=== PATIENT | female | born 1985 | race Caucasian/White ===

== ENCOUNTER 2017-03-17 09:54 | Inpatient (IN) | payer OTHER ==
[~2017-03-17] VITALS: Ht 154.9 cm; Wt 81.6 kg
[2017-03-17 10:04] VITALS: BP 161/118
--- NOTE | 2017-03-17 10:34 | NUR ---
Patient being evaluated by Dr. Blankenship at bedside.
[2017-03-17] MEDS ORDERED: NACL 0.9% 1,000 ML IV SCH (10:35)
[2017-03-17] MEDS ORDERED: ONDANSETRON 4 MG/2 ML VIAL IVP ONE (10:35)
[2017-03-17] MEDS ORDERED: MORPHINE SULFATE 4 MG/ML SYR IVP ONE ×2 (10:35→11:35)
--- NOTE | 2017-03-17 10:40 | NUR ---
31/F c/o RUQ abdominal pain x3 days. Pt states she has hx of gallstones for the past few years but has been unable to have surgery d/t being the last few years. AOX4, ambulates with steady gait. VSS. Pt also c/o N/V, denies diarrhea. Afebrile. Pt crying and appears restless d/t pain. Placed in a position of comfort, placed on corset maker, pulse oximetry and blood pressure monitoring. VSS. All needs addressed at this time. Warm blanket provided.
--- NOTE | 2017-03-17 10:44 | NUR ---
Ultrasound at bedside.
[2017-03-17 10:59] LABS: BASOPHILS # (AUTO) 0.2 K/uL (0.00-0.22); BASOPHILS % (AUTO) 1.3 % (0.0-2.0); EOSINOPHILS # (AUTO) 0.1 K/uL (0-0.4); EOSINOPHILS % (AUTO) 1.1 % (0.0-4.0); HEMOGLOBIN 12.3 g/dL (12.0-16.0); LYMPHOCYTES # (AUTO) 1.4 K/uL (2.5-16.5); LYMPHOCYTES % (AUTO) 11.3 % (20.5-51.1); MEAN CORPUSCULAR HEMOGLOBIN 27 pg (27-31); MEAN CORPUSCULAR HGB CONC 33 g/dL (33-37); MEAN CORPUSCULAR VOLUME 82 fL (80-94); MONOCYTES # (AUTO) 0.7 K/uL (0.8-1.0); MONOCYTES % (AUTO) 6.1 % (1.7-9.3); NEUTROPHILS # (AUTO) 9.8 K/uL (1.8-7.7); NEUTROPHILS % (AUTO) 80.2 % (42.2-75.2); PLATELET COUNT (AUTO) 270 K/uL (140-450); RED BLOOD CELL COUNT(AUTO) 4.54 MIL/uL (4.20-5.40); RED CELL DISTRIBUTION WIDTH 15.2 % (11.6-13.7); WHITE BLOOD COUNT (AUTO) 12.2 K/uL (4.8-10.8)
--- NOTE | 2017-03-17 11:05 | NUR ---
Pt appears to be resting comfortably at this time. 04/10 at this time but states "I'm feeling a little better." Pt does not appears restless or guarding. Pt lying left side lying.
[2017-03-17 11:09] LABS: ANION GAP 10.7 (8-16); CALCIUM 8.4 mg/dL (8.5-10.1); CARBON DIOXIDE 27.9 mmol/L (21-32); CREATININE 0.6 mg/dL (0.6-1.3); POTASSIUM 3.6 mmol/L (3.5-5.1)
[2017-03-17 11:16] LABS: ALBUMIN 3.8 g/dL (3.4-5.0); TOTAL BILIRUBIN 0.5 mg/dL (0.0-1.0); TOTAL PROTEIN, SERUM 8.3 g/dL (6.4-8.2)
--- NOTE | 2017-03-17 11:25 | NUR ---
Patient appears to be resting comfortably in bed. No distress noted. VSS.
--- NOTE | 2017-03-17 11:34 | NUR ---
Patient ambulated to restroom with steady gait. Upon returning to room patient states "I don't feel good. I feel the same as I did when I came in." Dr. Blankenship made aware of patient c/o pain and nausea.
[2017-03-17] MEDS ORDERED: PIPERACILLIN/TAZOBACTAM 3.375 GM in DEXTROSE 5% 50 ML IV ONE (11:45)
[2017-03-17] MEDS ORDERED: PIPERACILLIN/TAZOBACTAM 3.375 GM VIAL IV ONE (12:06)
[2017-03-17 12:10] LABS: LACTIC ACID 1.1 mmol/L (0.4-2.0)
[2017-03-17] MEDS: NACL 0.9% 1,000 ML IV SCH ×2 (12:44→22:54)
[2017-03-17] MEDS ORDERED: MORPHINE SULFATE 2 MG/ML SYR IVP PRN (12:45)
[2017-03-17] MEDS ORDERED: MORPHINE SULFATE 4 MG/ML SYR IVP PRN ×2 (12:45→15:25)
[2017-03-17] MEDS ORDERED: ACETAMINOPHEN 325 MG TAB PO PRN (12:45)
[2017-03-17] MEDS ORDERED: ONDANSETRON 4 MG/2 ML VIAL IVP PRN (12:45)
[2017-03-17 13:00] LABS: INR 1.1 (0.8-1.2); PROTHROMBIN TIME 10.8 secs (10.8-13.4)
--- NOTE | 2017-03-17 13:11 | NUR ---
Patient will be admitted to care of Dr. Nino. Admited to Med/Surg. Will go to room 120-B. Belongings list completed. Report to Geoffrey HERNANDEZ.
[2017-03-17 13:25] VITALS: BP 153/92
--- NOTE | 2017-03-17 13:25 | NUR ---
Admitted from ER , with chief complaint of ABDOMINAL PAIN , 31 y/o ,Female, Cooperative, AAOX4, PT STATES PAIN OF 10/10. PT JUST MEDICATED WITH 4MG OF MORPHINE. WILL REEVALUATE. IV SITE PATENT AND INTACT. PT oriented to call light, bed, phone,television, bathroom, smoking policy, visiting hours, procedures, ID bracelet on. Belongings list checked. WILL CONTINUE TO MONITOR.
--- NOTE | 2017-03-17 15:06 | NUR ---
PATIENT IS ANXIOUS AND AGITATED STATING PAIN IS STILL 10/10. EXPLAINED THAT I WAS WAITING FOR DR. BRENNER TO CALL BACK. TRIED REPOSITIONING AND DISTRACTION. DR. BRENNER PAGED AGAIN. AWAITING CALL BACK.
--- NOTE | 2017-03-17 15:23 | NUR ---
PT STILL C/O ABDOMINAL PAIN 06/10. AGITATED AND RESTLESS. DR. BRENNER MADE AWARE. RECEIVED NEW ORDER TO INCREASE MORPHINE DOSE TO 6MG IV Q4H PRN FOR SEVERE PAIN. NOTED AND CARRIED OUT.
[2017-03-17] MEDS ORDERED: MORPHINE SULFATE 10 MG/ML SYR IVP PRN (15:29)
--- NOTE | 2017-03-17 15:32 | NUR ---
PT STATES PAIN IS STILL 10/10. MEDICATED ORDERED BY DR. BRENNER. NO S/S OF ACUTE DISTRESS. WILL CONTINUE TO MONITOR.
[2017-03-17 16:00] VITALS: BP 155/107
--- NOTE | 2017-03-17 17:30 | NUR ---
DR. COHEN IN TO SEE PATIENT.
--- NOTE | 2017-03-17 18:10 | NUR ---
SPOKE WITH DR. LEE. STATES HE IS UNABLE TO TAKE CONSULT AT THIS TIME DUE TO BEING OUT OF TOWN. WILL FOLLOW UP WITH DR. GAINES.
[2017-03-17] MEDS: HYDROmorphone PFS 2 MG/ML SYR IVP PRN ×2 (18:42→22:45)
--- NOTE | 2017-03-17 18:44 | NUR ---
DR. LAYTON NOTIFIED OF CONSULT.
--- NOTE | 2017-03-17 19:06 | NUR ---
ENDORSED PLAN OF CARE TO NIGHT RN. PT REMAINS STABLE.
--- NOTE | 2017-03-17 19:07 | NUR ---
RECD. RESTING IN BED, AWAKE, A/OX4. RESPIRATION EVEN AND UNLABORED. IV OF NS AT 100 ML/HR INFUSING, LEFT AC G20. CONVERSING WITH AND DAD AT THE BEDSIDE. PLAN OF CARE FOR THE SHIFT DISCUSSED. VERBALIZED UNDERSTANDING. PAIN IN THE ABDOMEN 09/10, CLAIMED TOLERABLE. WILL MEDICATE ORDERED. Addendum: 03/17/17 at 2233 by Ye Manning LVN THIS CHARTING MADE BY YE MANNING LVN NOT BY MARY VELIZ
--- NOTE | 2017-03-17 20:00 | NUR ---
Patient's Plan of Care was discussed and reviewed with CASTING REPAIRER: YE MANNING
--- NOTE | 2017-03-17 22:00 | NUR ---
COMPLAINT OF SHORTNESS OF BREATH. PUT ON 02 AT 2 LITERS VIA N/C. GETS NAUSEATED, VOMITED SMALL AMOUNT OF YELLOWISH FLUID. SITS ON THE BED, O2 SAT - 100%. Addendum: 03/17/17 at 2233 by Ye Manning LVN CORRECTION: THIS NOTES ENTERED BY YE MANNING LVN NOT BY MARY VELIZ
--- NOTE | 2017-03-17 22:17 | NUR ---
MEDICATED WITH ZOFRAN 4 MG. IVP BY MARY VELIZ. Addendum: 03/17/17 at 2234 by Ye Manning LVN CORRECTION: THIS NOTES MADE BY YE MANNING LVN NO MARY VELIZ.
[2017-03-17 22:45] VITALS: BP 155/80
--- NOTE | 2017-03-17 22:47 | NUR ---
SITTING IN BED, NO N/V NOTED.
--- NOTE | 2017-03-17 23:30 | NUR ---
AWARE OF NPO PAST MIDNIGHT.
[2017-03-18 00:30] VITALS: BP 111/73
--- NOTE | 2017-03-18 00:30 | NUR ---
ACCIDENTALLY WET THE BED, BEDDINGS CHANGED. AMBULATED TO BR TO VOID, GAIT STEADY. MADE COMFORTABLE IN BED WITH PILLOWS.
[2017-03-18] MEDS: DEXT 5% / NACL 0.45% 1,000 ML IV SCH ×2 (02:20→14:30)
--- NOTE | 2017-03-18 04:00 | NUR ---
SLEEPING COMFORTABLY IN BED.
[2017-03-18 05:16] VITALS: BP 124/74
[2017-03-18] MEDS: HYDROmorphone PFS 2 MG/ML SYR IVP PRN ×5 (05:16→21:54)
[2017-03-18 05:52] LABS: BASOPHILS # (AUTO) 0.1 K/uL (0.00-0.22); BASOPHILS % (AUTO) 1.3 % (0.0-2.0); EOSINOPHILS # (AUTO) 0.1 K/uL (0-0.4); EOSINOPHILS % (AUTO) 0.8 % (0.0-4.0); HEMATOCRIT 33.9 % (36-48); HEMOGLOBIN 11.3 g/dL (12.0-16.0); LYMPHOCYTES # (AUTO) 1.3 K/uL (2.5-16.5); LYMPHOCYTES % (AUTO) 11.8 % (20.5-51.1); MEAN CORPUSCULAR HEMOGLOBIN 27 pg (27-31); MEAN CORPUSCULAR HGB CONC 33 g/dL (33-37); MEAN CORPUSCULAR VOLUME 81 fL (80-94); MONOCYTES # (AUTO) 0.8 K/uL (0.8-1.0); MONOCYTES % (AUTO) 7.1 % (1.7-9.3); NEUTROPHILS # (AUTO) 8.9 K/uL (1.8-7.7); PLATELET COUNT (AUTO) 209 K/uL (140-450); RED CELL DISTRIBUTION WIDTH 14.9 % (11.6-13.7); WHITE BLOOD COUNT (AUTO) 11.2 K/uL (4.8-10.8)
[2017-03-18 06:12] LABS: ANION GAP 10.4 (8-16); CALCIUM 7.7 mg/dL (8.5-10.1); CARBON DIOXIDE 25.2 mmol/L (21-32); CREATININE 0.6 mg/dL (0.6-1.3); POTASSIUM 3.6 mmol/L (3.5-5.1); TOTAL BILIRUBIN 0.9 mg/dL (0.0-1.0); TOTAL PROTEIN, SERUM 6.9 g/dL (6.4-8.2)
--- NOTE | 2017-03-18 06:25 | NUR ---
COMPLAINT OF PAIN ATTENDED PROMPTLY, MEDICATED ORDERED. ALL NEEDS ATTENDED. CONDITION REMAIN STABLE. WILL ENDORSE TO AM NURSE FOR CONTINUITY OF CARE.
--- NOTE | 2017-03-18 07:25 | NUR ---
RECEIVED PATIENT REPORT AT BEDSIDE FROM NIGHT NURSE. PT IS AAOX4 AND SHOWS NO S/S OF DISTRESS ON ROOM AIR. PATIENT HAS A NOTED IV ON THE L AC WITH IVF'S INFUSING WELL. PATIENT SKIN IS INTACT. THE BED IS LOWERED WITH CALL LIGHT WITHIN REACH. PATIENT STATES PAIN ON THE RUQ HOWEVER REFUSES MORPHINE. PATIENT AWARE PRN PAIN MEDICATION DILAUDID 2 MG IV NOT DUE UNTIL 0916. PATIENT VERBALIZES UNDERSTANDING OF POC. WILL CONTINUE TO MONITOR.
--- NOTE | 2017-03-18 09:10 | NUR ---
ADMINISTERED PRN PAIN MEDICATION DILAUDID 2 MG IVP. PT TOLERATED ACTIVITY WELL. WILL CONTINUE TO MONITOR.
--- NOTE | 2017-03-18 09:12 | NUR ---
PATIENT HAS BEEN SCREENED AND CATEGORIZED MODERATE NUTRITION RISK. PATIENT WILL BE SEEN WITHIN 3-5 DAYS OF ADMISSION. 03/20/17-03/22/[address]
[2017-03-18] MEDS: NACL 0.9% 1,000 ML IV SCH (09:13)
--- NOTE | 2017-03-18 10:30 | NUR ---
PATIENT HAS FAMILY AT BEDSIDE AND SHOWS NO S/S OF DISTRESS ON ROOM AIR. PT AWARE OF PROCEDURE AT 1145 WILL CONTINUE TO MONITOR.
--- NOTE | 2017-03-18 10:32 | NUR ---
FAXED INITIAL REVIEW TO [facility] [phone] PHONE ONE[facility] [phone] FAXED INITIAL REVIEW TO ALLIED PHYSICIAN [phone] PHONE DESIRE [phone]
--- NOTE | 2017-03-18 11:30 | NUR ---
PT LEFT UNIT IN STABLE CONDITION TO PROCEDURE.
[2017-03-18] MEDS ORDERED: PROPOFOL 200 MG/20 ML VIAL IV ONE (11:40)
[2017-03-18] MEDS ORDERED: GLYCOPYRROLATE 0.2 MG/ML VIAL IV ONE (11:40)
[2017-03-18] MEDS ORDERED: SUCCINYLCHOLINE CHLORIDE 200 MG/10 ML VIAL IV ONE (11:40)
[2017-03-18] MEDS ORDERED: DEXAMETHASONE 4 MG/ML VIAL IVP ONE (11:40)
[2017-03-18] MEDS ORDERED: ROCURONIUM 50 MG/5 ML VIAL IV ONE (11:40)
[2017-03-18] MEDS ORDERED: SEVOFLURANE 250 ML BTL INH ONE (11:40)
[2017-03-18] MEDS ORDERED: ONDANSETRON 4 MG/2 ML VIAL IVP ONE (11:40)
[2017-03-18] MEDS ORDERED: NEOSTIGMINE 1:1000 10 MG/10 ML VIAL IM ONE (11:40)
[2017-03-18] MEDS ORDERED: fentaNYL 0.05 MG/ML VIAL ONE (11:48)
[2017-03-18] MEDS ORDERED: MIDAZOLAM 2 MG/2 ML VIAL ONE ×2 (11:48→13:53)
[2017-03-18] MEDS ORDERED: MEPERIDINE 50 MG/ML SYR ONE (11:49)
[2017-03-18] MEDS ORDERED: BUPIVACAINE-MPF/EPI 0.25% 30 ML VIAL INJ ONE (12:12)
[2017-03-18] MEDS ORDERED: LACTATED RINGERS 1,000 ML IV SCH (12:13)
[2017-03-18] MEDS ORDERED: ONDANSETRON 4 MG/2 ML VIAL IVP PRN (12:15)
[2017-03-18] MEDS ORDERED: MEPERIDINE 25 MG/ML SYR IVP PRN (12:15)
[2017-03-18] MEDS ORDERED: THROMBIN KIT 20 MU VIAL TP ONE (12:48)
[2017-03-18] MEDS: HYDROmorphone 1 MG/ML AMP IVP PRN ×4 (13:35→14:05)
[2017-03-18] MEDS ORDERED: HYDROmorphone PFS 2 MG/ML SYR ONE (13:47)
[2017-03-18] MEDS ORDERED: MIDAZOLAM 2 MG/2 ML VIAL IVP ONE (13:50)
--- NOTE | 2017-03-18 14:22 | NUR ---
PATIENT CAME TO UNIT LETHARGIC. PATIENT IS AROUSABLE AND AWAKE NOW AND STATES SHE IS IN PAIN 10/10 IN THE SURGERY SITE. PT HAS 4 NOTED DRESSINGS THAT ARE CLEAN DRY AND INTACT. PT BP IS 131/79, HR 80, O2 SAT 100%, 98.3 F TEMP, RESPIRATIONS 16, PAIN 10/10. WILL ADMINISTER PRN PAIN MEDICATION.
--- NOTE | 2017-03-18 14:30 | NUR ---
ADMINISTERED PRN PAIN MEDICATION. PT BED IS LOWERED WITH CALL LIGHT WITHIN REACH. ALL NEEDS MET. FAMILY AT BEDSIDE. WILL CONTINUE TO MONITOR.
[2017-03-18 16:00] VITALS: BP 117/62
--- NOTE | 2017-03-18 16:21 | NUR ---
PT UNABLE TO PREFORM IS DUE TO USING REST ROOM. RN AT BEDSIDE. WILL FOLLOW.
--- NOTE | 2017-03-18 16:30 | NUR ---
PATIENT IS C/O SEVERE PAIN. PATIENT IS AWARE DILAUDID MEDICATIONS IS NOT AVAILABLE. PT REFUSES TO RECEIVE MORPHINE OR OTHER FORMS OF PAIN MEDICATIONS. ENCOURAGED PATIENT TO GET NORCO 5/325MG PO FOR COVERAGE OF PAIN UNTIL DILAUDID 2 MG IV IS AVAILABLE.
[2017-03-18] MEDS: HYDROcodone/APAP 5/325 MG 1 TAB TAB PO PRN (17:18)
--- NOTE | 2017-03-18 18:29 | NUR ---
PATIENT C/O PAIN 06/10. PATIENT STATED NORCO DID NOT HELP. ADMINISTERED DILAUDID 2 MG IVP. PT SHOWS NO S/S OF DISTRESS ON ROOM AIR. WILL CONTINUE TO MONITOR.
--- NOTE | 2017-03-18 19:15 | NUR ---
PATIENT IS IN BED SLEEPING WITH FAMILY AT BEDSIDE. PATIENT IS EASILY AROUSABLE AND AAOX4. PATIENT REPORT GIVEN AT BEDSIDE TO NIGHT NURSE. PATIENT ENDORSED IN STABLE CONDITION.
--- NOTE | 2017-03-18 19:20 | NUR ---
RECEIVED PT FROM PORTER HERNANDEZ PT IS AAOX4 AMBULATORY IV ON LEFT ARM INFUSING WELL , ABD 3 BAND AIDS AND A SMALL DRESSING ON UMBILICAL AREA, RELATIVE AT BED SIDE INITIAL ASSESSMENT DONE
[2017-03-18 20:00] VITALS: BP 108/55
--- NOTE | 2017-03-18 22:30 | NUR ---
AFTER PAIN MEDIC GIVEN PT SLEEP QUIET NOT DISTRESS NOTED
[2017-03-19] VITALS: BP 115/80
[2017-03-19] MEDS: diphenhydrAMINE 50 MG/ML VIAL IVP PRN ×2 (00:30→04:06)
--- NOTE | 2017-03-19 01:38 | NUR ---
PT IS ASSISTED TOT HE RESTROOM NOT SOB NOTED
[2017-03-19] MEDS: HYDROmorphone PFS 2 MG/ML SYR IVP PRN ×4 (02:20→16:24)
--- NOTE | 2017-03-19 04:00 | NUR ---
SPONGE BATH GIVEN LINEN CHANGED DENIES ANY PAIN AT THIS TIME
[2017-03-19 05:43] LABS: BASOPHILS # (AUTO) 0.1 K/uL (0.00-0.22); BASOPHILS % (AUTO) 0.5 % (0.0-2.0); EOSINOPHILS # (AUTO) 0.1 K/uL (0-0.4); EOSINOPHILS % (AUTO) 0.7 % (0.0-4.0); HEMOGLOBIN 10.1 g/dL (12.0-16.0); LYMPHOCYTES # (AUTO) 1.7 K/uL (2.5-16.5); LYMPHOCYTES % (AUTO) 14.6 % (20.5-51.1); MEAN CORPUSCULAR HEMOGLOBIN 27 pg (27-31); MEAN CORPUSCULAR HGB CONC 33 g/dL (33-37); MEAN CORPUSCULAR VOLUME 82 fL (80-94); MONOCYTES # (AUTO) 0.8 K/uL (0.8-1.0); MONOCYTES % (AUTO) 7.3 % (1.7-9.3); NEUTROPHILS # (AUTO) 8.9 K/uL (1.8-7.7); NEUTROPHILS % (AUTO) 76.9 % (42.2-75.2); PLATELET COUNT (AUTO) 225 K/uL (140-450); RED BLOOD CELL COUNT(AUTO) 3.78 MIL/uL (4.20-5.40); RED CELL DISTRIBUTION WIDTH 15.3 % (11.6-13.7); WHITE BLOOD COUNT (AUTO) 11.6 K/uL (4.8-10.8)
[2017-03-19 06:25] LABS: ALBUMIN 2.6 g/dL (3.4-5.0); ANION GAP 11.1 (8-16); CALCIUM 7.7 mg/dL (8.5-10.1); CARBON DIOXIDE 25.6 mmol/L (21-32); CREATININE 0.6 mg/dL (0.6-1.3); POTASSIUM 3.7 mmol/L (3.5-5.1); TOTAL BILIRUBIN 0.4 mg/dL (0.0-1.0); TOTAL PROTEIN, SERUM 6.7 g/dL (6.4-8.2)
--- NOTE | 2017-03-19 06:26 | NUR ---
PT SLEEPING NOT SIGNS OF PAIN IV ON LEFT AC INFUSING WELL
--- NOTE | 2017-03-19 07:10 | NUR ---
RECEIVED PATIENT REPORT AT BEDSIDE FROM NIGHT NURSE. PATIENT IS AAOX4 AND SHOWS NO S/S OF DISTRESS ON ROOM AIR. PATIENT C/O 10/10 ABD PAIN AT INCISION SITE. PATIENT WILL BE MEDICATED WITH DILAUDID 2 MG IVP. NOTED IV SITE ON THE L AC 20G WITH IVF'S INFUSING WELL. 3 DRESSING ON THE ABD AND GAUZE PLACED ON UMBILICAL SITE NOTED FROM LAP CHOLECYSTECTOMY PROCEDURE DONE ON 03/18/17. PATIENT IS AMB WITH STEADY GAIT. PATIENT WAS ENCOURAGE TO USE IS HOWEVER SHE REFUSED. PATIENT STATED "IT HURTS TOO MUCH TO MOVE". WHEN ASKED IS SHE WOULD LIKE TO USE AN ABD BINDER WHICH WOULD EASE PAIN PATIENT REFUSED AND STATED " SHE HAS USED IT BEFORE AND IT HURTS TO PUT ON." PATIENT IS AWARE OF POC FOR TODAY AND VERBALIZES UNDERSTANDING. BED IS LOWERED WITH CALL LIGHT WITHIN REACH. WILL CONTINUE TO MONITOR.
--- NOTE | 2017-03-19 07:44 | NUR ---
PT REFUSED TO PERFORM IS.
--- NOTE | 2017-03-19 07:45 | NUR ---
ADMINISTERED PRN PAIN MEDICATION DILAUDID 2 MG IVP FOR 10/10 ABD PAIN AT INCISION SITE. PATIENT CONTINUOUS TO REFUSED ABD BINDER AND IS. WILL CONTINUE TO MONITOR.
[2017-03-19 08:00] VITALS: BP 135/77
--- NOTE | 2017-03-19 08:13 | NUR ---
PATIENT STATES " LONG I DON'T MOVE I HAVE NO PAIN". PATIENT SHOWS NO S/S OF DISTRESS ON ROOM AIR. PATIENT WATCHING TV WITH BED LOWERED AND CALL LIGHT WITHIN REACH.
[2017-03-19] MEDS: DEXT 5% / NACL 0.45% 1,000 ML IV SCH (09:30)
[2017-03-19] MEDS: HYDROcodone/APAP 5/325 MG 1 TAB TAB PO PRN ×2 (10:07→14:10)
--- NOTE | 2017-03-19 10:07 | NUR ---
PATIENT C/O PAIN 6/10. WILL ADMINISTER NORCO 5/325 MG PO. PATIENT THEN STATED IV WAS LEAKING. IV WAS DISCONTINUED. NEW IV WAS PLACED ON THE L FA 22G WITH IVF'S INFUSING WELL. PATIENT SHOWS NO S/S OF DISTRESS ON ROOM AIR. WILL CONTINUE TO MONITOR.
--- NOTE | 2017-03-19 10:54 | NUR ---
CM NOTE CONCURRENT REVIEW FAXED TO IE [phone] JANUARY [phone] [facility] [phone] AND TO ALLIED PHYS [phone] DESIRE [facility] [id number]
--- NOTE | 2017-03-19 11:00 | NUR ---
PATIENT AMB ON UNIT WITH . PATIENT TOLERATING WELL. PATIENT C/O NOT PASSING GAS AND FEELING BLOATED. PAGED DR BRENNER TO NOTIFY HER OF SYMPTOM. PATIENT WAS EDUCATED ON WALKING FREQUENTLY TO HELP PASS GAS. WILL AWAIT FOR CALL BACK FROM DR. BRENNER.
--- NOTE | 2017-03-19 12:18 | NUR ---
PATIENT C/O ABD PAIN 03/10. ADMINISTERED DILAUDID 2 MG IVP PER PATIENTS REQUEST. PATIENT STATES DILAUDID IS THE ONLY MEDICATION THAT WORKS. PATIENTS REFUSES MORPHINE PRN PAIN MEDICATION.
--- NOTE | 2017-03-19 12:20 | NUR ---
RECEIVED CALLBACK FROM DR BRENNER. DR BRENNER ADVISES FOR PATIENT TO WALK MORE FREQUENTLY FOR PATIENTS SYMPTOM OF BEING BLOATED AND NOT PASSING GAS. WILL CONTINUE TO MONITOR.
--- NOTE | 2017-03-19 13:50 | NUR ---
PATIENT IS IN ROOM AND C/O 6/10 PAIN WILL ADMINISTER NORCO 5/325 MG PO. PATIENT FAMILY AT BEDSIDE. PT SHOWS NO S/S OF DISTRESS ON ROOM AIR.
--- NOTE | 2017-03-19 14:19 | NUR ---
PATIENT SEEN BY DR BRENNER. PATIENT IS AAOX4 AND SHOW NO S/S OF DISTRESS ON ROOM AIR. PATIENT HAS NOT PASSED GAS YET. PT IS AMB ON UNIT ENCOURAGED BY .
[2017-03-19 15:43] VITALS: BP 120/76
--- NOTE | 2017-03-19 16:24 | NUR ---
PATIENT C/O OF PAIN (PLEASE SEE PAIN ASSESSMENT). ADMINISTERED DILAUDID 2 MG IVP. WILL REASSESS IN 30 MIN.
--- NOTE | 2017-03-19 16:54 | NUR ---
PATIENT CONTINUOS TO C/O PAIN HOWEVER STATES DILAUDID HELPED TO LOWERED PAIN LEVEL TO 7/10. WILL CONTINUE TO MONITOR.
--- NOTE | 2017-03-19 17:15 | NUR ---
RECEIVED CALL FROM DR LAYTON. SIMED PATIENT TO BE DISCHARGED. DR BRENNER WAS CALL TO NOTIFY OF SIM BY CONSULT. MD MONTEMAYOR FOR DISCHARGE WELL. PATIENT WAS NOTIFIED.
--- NOTE | 2017-03-19 17:30 | NUR ---
WHEN WALKED INTO ROOM PATIENT WAS DRESSED AND STATED " IM READY TO GO HOME." PATIENT IS AWARE THAT DISCHARGE PAPERWORK NEEDED TO BE COMPLETED AND WILL BE DONE PROMPTLY. I ASKED "HOW ARE YOU DOING?" PATIENT STATED "WELL YOU SAID IM OKAY TO GO HOME. I WANT TO LEAVE NOW." WHEN ASKED IF SHE WAS UPSET SHE STATED " I DON'T UNDERSTAND WHY SHE (SRIKANTH RN) HAD TO TELL ME. SHE ISN'T MY NURSE." I EXPLAINED TO PATIENT DR LAYTON AND DR BRENNER OKAYED THE DISCHARGE AND SRIKANTH HERNANDEZ AND I WENT TOGETHER TO ASSESS TO MAKE SURE SHE WAS DOING WELL. I SAID, " WHEN SRIKANTH AND I CAME IN YOU DIDN'T MENTION YOU WEREN'T READY TO GO." PATIENT STATED "WELL YOU GUYS SAY IM READY, THEN I AM READY TO GO HOME." PATIENT WAS MADE AWARE AGAIN TO WAIT A FEW MINUTES FOR ME TO PRINT OUT DISCHARGE PAPERWORK. ALSO, THAT SHE NEEDED TO HAVE PICTURES TAKEN OF HER ABDOMINAL INCISIONS FROM HER LAPAROSCOPIC CHOLECYSTECTOMY. PATIENT REFUSED TO HAVE PICTURES TAKEN.
--- NOTE | 2017-03-19 18:00 | NUR ---
PT HAS BEEN DISCHARGED. ALL DISCHARGE INSTRUCTIONS AND PRESCRIPTIONS GIVEN. ALL PAPERWORK SIGNED. ALL QUESTIONS ANSWERED. PATIENT VERBALIZED UNDERSTANDING. PATIENT WAS AT BEDSIDE. HE ALSO VERBALIZED UNDERSTANDING. ALL BELONGINGS AND PRESCRIPTIONS IN PATIENT POSSESSION. IV WAS DISCONTINUED WITH CANNULA INTACT. WRISTBANDS REMOVED. OFFERED PATIENT WHEELCHAIR. PATIENT REFUSED. PATIENT AMBULATED WITH STEADY OUT OF UNIT WITH PRESENT AT SIDE. PATIENT LEFT IN STABLE CONDITION.
== END 2017-03-19 18:00 | disposition home or self-care (01) | DRG 263 ==
LOC: MED 09:54 → MTU 12:47
PROVIDERS: ADMIT Hospitalist; ATTEND Hospitalist
PROC: 0FT44ZZ Resection of Gallbladder, Percutaneous Endoscopic Approach (ICD-10-PCS; principal; 2017-03-18 11:45)
DX: K80.00 Calculus of gallbladder with acute cholecystitis without obstruction (principal); E66.01 Morbid (severe) obesity due to excess calories; Z91.013 Allergy to seafood; Z68.34 Body mass index [BMI] 34.0-34.9, adult; Z98.51 Tubal ligation status
CPT/HCPCS: 36415; 71010; 76705; 80053; 81025; 83605; 83690; 84703; 85025; 85610; 85730; 87040; 87081; 96365; 96375; 96376; 99291; J0330; J1100; J1170; J1200; J2175; J2250; J2270; J2405; J2543; J2704; J2710; J3010; J3490; J7030; J7060; Q0092

== ENCOUNTER 2019-09-28 16:21 | Emergency (ER) | payer OTHER ==
[~2019-09-28] VITALS: Ht 160 cm; Wt 90.8 kg
[2019-09-28 16:36] VITALS: BP 162/98
--- NOTE | 2019-09-28 16:40 | NUR ---
PT TO BED 12 WITH STEADY GAIT
--- NOTE | 2019-09-28 16:49 | NUR ---
34/F BIB FAMILY C/O UMBILICAL HERNIA PAIN X 2017 POST GALLBLADDER SURGERY.A PATIENT STATES PAIN OF 10/10 AT THIS TIME. PATIENT POSITIONED FOR COMFORT; HOB ELEVATED; BEDRAILS UP X1; BED DOWN. ER MD MADE AWARE OF PT STATUS.
--- NOTE | 2019-09-28 17:19 | NUR ---
Patient returned from CT scan. RN re-evaluating patient at bedside.
[2019-09-28] MEDS ORDERED: KETOROLAC 30 MG/ML VIAL IVP ONE (17:30)
[2019-09-28] MEDS ORDERED: NACL 0.9% 1,000 ML IV ONE (17:30)
[2019-09-28 19:17] VITALS: BP 146/93
--- NOTE | 2019-09-28 19:17 | NUR ---
Patient discharged with v/s stable. Pt states pain reduced at 4/10 and tollerable. Written and verbal after care instructions given and explained. Patient alert, oriented and verbalized understanding of instructions. Ambulatory with steady gait. All questions addressed prior to discharge. ID band removed. Patient advised to follow up with PMD and when to return to ER. Rx of Motrin and Tramadol given. Patient educated on indication of medication including possible reaction and side effects. Opportunity to ask questions provided and answered.
== END 2019-09-28 19:14 | disposition home or self-care (01) ==
LOC: MED 16:21
DX: K42.9 Umbilical hernia without obstruction or gangrene (principal); Z90.49 Acquired absence of other specified parts of digestive tract; Z91.013 Allergy to seafood
CPT/HCPCS: 74176; 81002; 81025; 96374; 99284; J1885; J7030

== ENCOUNTER 2019-11-28 17:28 | Inpatient (IN) | payer OTHER ==
[~2019-11-28] VITALS: Ht 154.9 cm; Wt 90.3 kg
[2019-11-28 17:32] VITALS: BP 183/93
[2019-11-28] MEDS ORDERED: NACL 0.9% 1,000 ML IV ONE (17:45)
[2019-11-28] MEDS ORDERED: MORPHINE SULFATE 4 MG/ML SYR IVP ONE (17:45)
[2019-11-28] MEDS ORDERED: ONDANSETRON 4 MG/2 ML VIAL IVP ONE (17:45)
[2019-11-28 18:26] LABS: BASOPHILS # (AUTO) 0.1 K/uL (0.00-0.22); BASOPHILS % (AUTO) 0.7 % (0.0-2.0); EOSINOPHILS # (AUTO) 0.1 K/uL (0-0.4); EOSINOPHILS % (AUTO) 0.7 % (0.0-4.0); HEMATOCRIT 39.9 % (36-48); HEMOGLOBIN 13.2 g/dL (12.0-16.0); LYMPHOCYTES # (AUTO) 3.9 K/uL (2.5-16.5); LYMPHOCYTES % (AUTO) 35.7 % (20.5-51.1); MEAN CORPUSCULAR HEMOGLOBIN 27 pg (27-31); MEAN CORPUSCULAR HGB CONC 33 g/dL (33-37); MEAN CORPUSCULAR VOLUME 81.9 fL (80-94); MONOCYTES # (AUTO) 0.5 K/uL (0.8-1.0); MONOCYTES % (AUTO) 4.9 % (1.7-9.3); NEUTROPHILS # (AUTO) 6.3 K/uL (1.8-7.7); PLATELET COUNT (AUTO) 296 K/uL (140-450); RED BLOOD CELL COUNT(AUTO) 4.87 MIL/uL (4.20-5.40); RED CELL DISTRIBUTION WIDTH 14.9 % (11.6-13.7); WHITE BLOOD COUNT (AUTO) 10.9 K/uL (4.8-10.8)
[2019-11-28 18:36] LABS: ALBUMIN 3.9 g/dL (3.4-5.0); ANION GAP 14.4 (8-16); CARBON DIOXIDE 25.3 mmol/L (21-32); CREATININE 0.9 mg/dL (0.6-1.3); TOTAL BILIRUBIN 0.5 mg/dL (0.0-1.0)
[2019-11-28 18:37] LABS: POTASSIUM 2.7 mmol/L (3.5-5.1)
[2019-11-28 18:43] LABS: APPEARANCE,URINE CLEAR (CLEAR); BILIRUBIN,URINE NEGATIVE (NEGATIVE); BLOOD, URINE NEGATIVE (NEGATIVE); COLOR,URINE YELLOW (YELLOW); LEUKOCYTE ESTERASE ,URINE NEGATIVE (NEGATIVE); NITRITE, URINE NEGATIVE (NEGATIVE); UGLUCOSE NEGATIVE (NEGATIVE)
[2019-11-28] MEDS ORDERED: KCL 20 MEQ/WATER INJ PREMIX 100 ML IV ONE ×2 (18:50→21:00)
[2019-11-28] MEDS ORDERED: fentaNYL 0.05 MG/ML VIAL IVP ONE (19:50)
[2019-11-28] MEDS ORDERED: DEXT 5% / NACL 0.45% 1,000 ML IV ONE (20:15)
[2019-11-28] MEDS ORDERED: PROCHLORPERAZINE 10 MG/2 ML VIAL IVP ONE (20:30)
[2019-11-28] MEDS ORDERED: LORazepam 2 MG/ML VIAL ONE (20:52)
[2019-11-28] MEDS ORDERED: LORazepam 2 MG/ML VIAL IVP SCH (20:55)
[2019-11-28 21:15] VITALS: BP 188/118
[2019-11-28] MEDS ORDERED: BUPIVACAINE MPF 0.25% 10 ML VIAL INJ ONE (21:24)
[2019-11-28] MEDS ORDERED: LIDOCAINE/EPI 1% 1:100000 20 ML VIAL INJ ONE (21:25)
[2019-11-28] MEDS ORDERED: HYDROmorphone PFS 2 MG/ML SYR ONE (21:51)
[2019-11-28] MEDS ORDERED: ONDANSETRON 4 MG/2 ML VIAL ONE (21:51)
[2019-11-28] MEDS ORDERED: fentaNYL 0.05 MG/ML VIAL ONE (21:51)
[2019-11-28] MEDS ORDERED: DESFLURANE 240 ML BTL INH ONE (21:51)
[2019-11-28] MEDS ORDERED: KETOROLAC 30 MG/ML VIAL ONE (21:51)
[2019-11-28] MEDS ORDERED: SUCCINYLCHOLINE CHLORIDE 200 MG/10 ML VIAL IVP ONE (21:51)
[2019-11-28] MEDS ORDERED: ROCURONIUM 50 MG/5 ML VIAL IV ONE (21:51)
[2019-11-28] MEDS ORDERED: DEXAMETHASONE 4 MG/ML VIAL ONE (21:51)
[2019-11-28] MEDS ORDERED: PROPOFOL 200 MG/20 ML VIAL IV ONE (21:51)
[2019-11-28] MEDS ORDERED: ONDANSETRON 4 MG/2 ML VIAL IVP PRN (23:30)
[2019-11-29] MEDS ORDERED: KCL 20 MEQ/WATER INJ PREMIX 100 ML IV ONE (00:48)
[2019-11-29] MEDS: HYDROmorphone 1 MG/ML AMP IVP PRN ×6 (01:00→22:42)
[2019-11-29] MEDS: HYDROcodone/APAP 5/325 MG 1 TAB TAB PO PRN ×2 (04:03→19:33)
[2019-11-29 08:00] VITALS: BP 111/70
[2019-11-29 16:00] VITALS: BP 140/88
[2019-11-30] VITALS: BP 134/67
[2019-11-30] MEDS: HYDROmorphone 1 MG/ML AMP IVP PRN ×3 (02:42→12:55)
[2019-11-30 07:29] LABS: BASOPHILS % (AUTO) 0.3 % (0.0-2.0); EOSINOPHILS % (AUTO) 0.2 % (0.0-4.0); HEMATOCRIT 33.8 % (36-48); HEMOGLOBIN 11.2 g/dL (12.0-16.0); LYMPHOCYTES # (AUTO) 3.7 K/uL (2.5-16.5); LYMPHOCYTES % (AUTO) 30.7 % (20.5-51.1); MEAN CORPUSCULAR HEMOGLOBIN 27 pg (27-31); MEAN CORPUSCULAR HGB CONC 33 g/dL (33-37); MEAN CORPUSCULAR VOLUME 82.3 fL (80-94); MONOCYTES # (AUTO) 0.8 K/uL (0.8-1.0); MONOCYTES % (AUTO) 6.5 % (1.7-9.3); NEUTROPHILS # (AUTO) 7.5 K/uL (1.8-7.7); NEUTROPHILS % (AUTO) 62.3 % (42.2-75.2); PLATELET COUNT (AUTO) 288 K/uL (140-450); RED BLOOD CELL COUNT(AUTO) 4.11 MIL/uL (4.20-5.40); RED CELL DISTRIBUTION WIDTH 15.1 % (11.6-13.7)
[2019-11-30 08:00] VITALS: BP 148/90
[2019-11-30 08:03] LABS: ALBUMIN 3.3 g/dL (3.4-5.0); ANION GAP 12.1 (8-16); CARBON DIOXIDE 28.2 mmol/L (21-32); CREATININE 0.7 mg/dL (0.6-1.3); POTASSIUM 3.3 mmol/L (3.5-5.1); TOTAL BILIRUBIN 0.7 mg/dL (0.0-1.0)
[2019-11-30] MEDS: HYDROcodone/APAP 5/325 MG 1 TAB TAB PO PRN (10:20)
[2019-11-30 16:00] VITALS: BP 145/83
[2019-11-30] MEDS ORDERED: traMADol 50 MG TAB PO PRN (16:10)
[2019-11-30] MEDS ORDERED: KETOROLAC 15 MG/ML VIAL IVP PRN (16:10)
[2019-11-30] MEDS: POTASSIUM CHLORIDE 10 MEQ TABER PO SCH (17:58)
[2019-11-30] MEDS: FAMOTIDINE 20 MG TAB PO SCH (20:48)
[2019-12-01] VITALS: BP 129/84
[2019-12-01 07:03] LABS: BASOPHILS # (AUTO) 0.1 K/uL (0.00-0.22); BASOPHILS % (AUTO) 0.8 % (0.0-2.0); EOSINOPHILS # (AUTO) 0.1 K/uL (0-0.4); EOSINOPHILS % (AUTO) 1.2 % (0.0-4.0); HEMATOCRIT 33.5 % (36-48); HEMOGLOBIN 11.3 g/dL (12.0-16.0); LYMPHOCYTES # (AUTO) 2.1 K/uL (2.5-16.5); LYMPHOCYTES % (AUTO) 23.1 % (20.5-51.1); MEAN CORPUSCULAR HEMOGLOBIN 28 pg (27-31); MEAN CORPUSCULAR HGB CONC 34 g/dL (33-37); MEAN CORPUSCULAR VOLUME 82.2 fL (80-94); MONOCYTES # (AUTO) 0.6 K/uL (0.8-1.0); NEUTROPHILS # (AUTO) 6.2 K/uL (1.8-7.7); NEUTROPHILS % (AUTO) 67.9 % (42.2-75.2); PLATELET COUNT (AUTO) 272 K/uL (140-450); RED BLOOD CELL COUNT(AUTO) 4.07 MIL/uL (4.20-5.40); RED CELL DISTRIBUTION WIDTH 14.7 % (11.6-13.7); WHITE BLOOD COUNT (AUTO) 9.2 K/uL (4.8-10.8)
[2019-12-01 08:00] VITALS: BP 134/72
[2019-12-01] MEDS: FAMOTIDINE 20 MG TAB PO SCH (08:22)
[2019-12-01] MEDS: POTASSIUM CHLORIDE 10 MEQ TABER PO SCH (09:09)
[2019-12-01 09:11] LABS: ALBUMIN 3.2 g/dL (3.4-5.0); ANION GAP 14.7 (8-16); CARBON DIOXIDE 26.9 mmol/L (21-32); CREATININE 0.7 mg/dL (0.6-1.3); POTASSIUM 3.6 mmol/L (3.5-5.1); TOTAL BILIRUBIN 0.5 mg/dL (0.0-1.0)
[2019-12-01 13:16] VITALS: BP 122/89
[2019-12-01] MEDS ORDERED: ACET-9525 PO (13:35)
== END 2019-12-01 14:45 | disposition home or self-care (01) | DRG 227 ==
LOC: MED 17:28 → MTU 20:35
PROVIDERS: ADMIT Internal Medicine Pulmonary Disease; ATTEND Internal Medicine Pulmonary Disease
PROC: 0WUF0JZ Supplement Abdominal Wall with Synthetic Substitute, Open Approach (ICD-10-PCS; principal; 2019-11-28 21:30)
DX: K43.6 Other and unspecified ventral hernia with obstruction, without gangrene (principal); E66.01 Morbid (severe) obesity due to excess calories; R65.10 Systemic inflammatory response syndrome (SIRS) of non-infectious origin without acute organ dysfunction; D17.71 Benign lipomatous neoplasm of kidney; D72.829 Elevated white blood cell count, unspecified; E87.6 Hypokalemia; I10 Essential (primary) hypertension; Z68.37 Body mass index [BMI] 37.0-37.9, adult; Z90.49 Acquired absence of other specified parts of digestive tract; Z91.013 Allergy to seafood; Z79.899 Other long term (current) drug therapy; Z98.891 History of uterine scar from previous surgery; Z98.51 Tubal ligation status
CPT/HCPCS: 36415; 71045; 74018; 80053; 81003; 81025; 83690; 84703; 85025; 87081; 96361; 96374; 96375; 99285; C1781; J0330; J0780; J1100; J1170; J1885; J2001; J2060; J2270; J2405; J2704; J3010; J3480; J3490; J7030; Q0092; Q9967

== ENCOUNTER 2020-03-17 19:31 | Emergency (ER) | payer OTHER ==
[~2020-03-17] VITALS: Ht 154.9 cm; Wt 90.7 kg
[~2020-03-17 19:31] MED LIST: ACET-9525 PO
[2020-03-17 19:36] VITALS: BP 156/98
--- NOTE | 2020-03-17 19:41 | NUR ---
PT TAKEN TO LOBBY VIA W/C.
--- NOTE | 2020-03-17 20:12 | NUR ---
RECEIVED A 34/F FROM [facility] WITH A C/O RIGHT FOOT PAIN SECONDARY TO STUBBING TOE ON A BEDFRAME 2 HRS PRIOR TO ARRIVAL. PT REQUIRED WHEELCHAIR ASSITANCE TO MOVE FROM [employer], AND UNABLE TO BEAR WEIGHT. CMS INTACT. IN FAST TRACK CHAIR FOR MSE.
[2020-03-17] MEDS ORDERED: HYDROcodone/APAP 10/325 MG 1 TAB TAB PO STA (20:24)
--- NOTE | 2020-03-17 21:45 | NUR ---
PT EDUCATED ON PROPER CRUTCH USE. PT ABLE TO VERBALIZE UNDERSTANDING AND ABLE TO DEMONSTRATE PROPER CRUTCH USE.
[2020-03-17 21:50] VITALS: BP 142/88
--- NOTE | 2020-03-17 21:50 | NUR ---
Patient discharged with v/s stable. Written and verbal after care instructions given and explained. Patient alert, oriented and verbalized understanding of instructions. Ambulatory with steady gait. All questions addressed prior to discharge. ID band removed. Patient advised to follow up with PMD. Rx of NAPROSYN, NORCO given. Patient educated on indication of medication including possible reaction and side effects. Opportunity to ask questions provided and answered.
== END 2020-03-17 21:50 | disposition home or self-care (01) ==
LOC: MED 19:31
DX: S92.5 Fracture of lesser toe(s) (principal); Z91.013 Allergy to seafood; X58.XXXD Exposure to other specified factors, subsequent encounter
CPT/HCPCS: 73660; 99283

== ENCOUNTER 2021-01-30 11:25 | Emergency (ER) | payer OTHER ==
[~2021-01-30] VITALS: Ht 154.9 cm; Wt 82.1 kg
[2021-01-30 11:30] VITALS: BP 160/123
--- NOTE | 2021-01-30 12:15 | NUR ---
Patient ambulated to bed 05 with steady/even gait.
--- NOTE | 2021-01-30 12:19 | NUR ---
35 y/o F brought in by mother from home with c/c SOB, anxious. Patient A&Ox4, ambulatory and states she woke up at 2AM on Friday with difficulty breathing. Patient reports "my heart feels like it's racing." States anxious due to SOB and has SOB upon exertion/physical activity. States recent stressors of being homeless. Denies abdominal pain, N/V, blurry vision, headache, dizziness, chest pain. BP 160/92, SpO2 100% on room air; lung sounds CTA. Denies any medications prior to arrival. EKG performed in triage showing sinus tachycardia @ HR 122. Bed locked in lowest position, side rails x 1. PMH: asthma, anxiety Meds: denies Sx: hernia sx, cholecystectomy 2019
--- NOTE | 2021-01-30 12:39 | NUR ---
Archana davis in [facility] - 01/30/21 at [address] Kulkarni is evaluating patient at bedside.
--- NOTE | 2021-01-30 12:39 | NUR ---
Dr. Kulkarni is evaluating the patient at bedside.
[2021-01-30] MEDS ORDERED: LORazepam 2 MG/ML VIAL IM ONE (12:45)
--- NOTE | 2021-01-30 12:55 | NUR ---
RAD at bedside.
--- NOTE | 2021-01-30 12:55 | NUR ---
Lab at bedside.
[2021-01-30 13:09] LABS: BASOPHILS # (AUTO) 0.1 K/uL (0.00-0.22); BASOPHILS % (AUTO) 0.9 % (0.0-2.0); EOSINOPHILS % (AUTO) 0.1 % (0.0-4.0); HEMATOCRIT 37.9 % (36-48); HEMOGLOBIN 12.5 g/dL (12.0-16.0); LYMPHOCYTES # (AUTO) 2.6 K/uL (2.5-16.5); LYMPHOCYTES % (AUTO) 20.1 % (20.5-51.1); MEAN CORPUSCULAR HEMOGLOBIN 25 pg (27-31); MEAN CORPUSCULAR HGB CONC 33 g/dL (33-37); MEAN CORPUSCULAR VOLUME 76.1 fL (80-94); MONOCYTES # (AUTO) 0.6 K/uL (0.8-1.0); NEUTROPHILS # (AUTO) 9.5 K/uL (1.8-7.7); NEUTROPHILS % (AUTO) 73.9 % (42.2-75.2); PLATELET COUNT (AUTO) 336 K/uL (140-450); RED BLOOD CELL COUNT(AUTO) 4.98 MIL/uL (4.20-5.40); RED CELL DISTRIBUTION WIDTH 16.3 % (11.6-13.7); WHITE BLOOD COUNT (AUTO) 12.8 K/uL (4.8-10.8)
[2021-01-30 13:28] LABS: ALBUMIN 4.4 g/dL (3.4-5.0); ANION GAP 14.1 (8-16); CARBON DIOXIDE 26.3 mmol/L (21-32); CREATININE 0.7 mg/dL (0.6-1.3); POTASSIUM 3.4 mmol/L (3.5-5.1); TOTAL BILIRUBIN 0.7 mg/dL (0.0-1.0)
[2021-01-30] MEDS ORDERED: HYDR25CA1 PO (13:43)
--- NOTE | 2021-01-30 13:55 | NUR ---
Patient discharged with v/s stable. Written and verbal after care instructions about shortness of breathe, palpitations, stress given and explained. Patient alert, oriented and verbalized understanding of instructions. Ambulatory with steady gait. All questions addressed prior to discharge. ID band removed. Patient advised to follow up with PMD. Rx of vistaril given. Patient educated on indication of medication including possible reaction and side effects. Opportunity to ask questions provided and answered.
[2021-01-30 13:57] VITALS: BP 166/110
== END 2021-01-30 13:55 | disposition home or self-care (01) ==
LOC: MED 11:25
DX: R00.2 Palpitations (principal); F41.9 Anxiety disorder, unspecified; R06.00 Dyspnea, unspecified; J45.909 Unspecified asthma, uncomplicated; F12.90 Cannabis use, unspecified, uncomplicated; Z79.899 Other long term (current) drug therapy; Z98.890 Other specified postprocedural states; Z90.49 Acquired absence of other specified parts of digestive tract
CPT/HCPCS: 36415; 71045; 80053; 85025; 85379; 93005; 96372; 99285; J2060